=== PATIENT | female | born 1960 | race Caucasian/White ===

== ENCOUNTER → 2018-10-13 | Day surgery (SDC) | payer MEDICAID ==
[2018-10-08 14:59] LABS: Basophils # (auto) 0.1 uL; Basophils % (auto) 0.7 % (0.0-2.0); Eosinophils # (auto) 0.2 uL; Eosinophils % (auto) 2.4 % (0.0-7.0); Hematocrit 46.4 % (36.0-46.0); Hemoglobin 15.7 g/dL (12.2-16.2); Lymphocytes # (auto) 3.5 uL; Lymphocytes % (auto) 44.5 % (10.0-50.0); Mean Corpuscular Hemoglobin 31.1 pg (28.0-32.0); Mean Corpuscular Hgb Conc. 33.8 g/dL (32.0-36.0); Mean Corpuscular Volume 92.1 fL (80.0-100.0); Monocytes # (auto) 0.6 uL; Neutrophils # (auto) 3.5 uL; Neutrophils % (auto) 44.4 % (37.0-80.0); Nucleated Red Blood Cells % 0.1 %; Platelet Count (auto) 248 10^3/uL (140-450); Red Blood Cells 5.04 10^6/uL (4.0-5.20); Red Cell Distribution Width 14.1 % (11.8-14.3); White Blood Cell 7.9 10^3/uL (4.4-10.8)
[2018-10-08 15:18] LABS: Albumin 3.7 g/dL (3.4-5.0); BUN/Creatinine Ratio 14.8; Calcium 8.7 mg/dL (8.5-10.1); Potassium 3.7 mmol/L (3.5-5.1)
[2018-10-08 15:21] LABS: Bilirubin, Total 0.4 mg/dL (0.2-1.0); Total Protein 7.9 g/dL (6.4-8.2)
[2018-10-08 15:36] LABS: INR 0.96 (0.9-1.15); Partial Thromboplastin Time 27.8 sec (23.78-33.04); Prothrombin Time 10.3 sec (9.27-12.13)
[2018-10-08 15:44] LABS: Urine Bacteria FEW /hpf (None Seen); Urine Blood 1+ /uL (Negative); Urine Specific Gravity 1.013 (1.001-1.035); Urine WBC 3 /hpf (0 - 5)
[~2018-10-13] VITALS: Ht 170.2 cm; Wt 88.0 kg
[~2018-10-13] MED LIST: ALPR0.5T PO; CLINDAMYCIN 600MG IV 50 ML IV ONE; DIPH25CA6 PO; DOXAPRAM HCL 20 MG/ML 20ML VIAL INJ IV ONE; ENAL2.5T PO; FURO40TA PO; HYDROmorphone HCL 2 MG/ML VL IV PRN; KETOROLAC TROMETH 30 MG/ML 1ML VIAL IV ONE; LIDOCAINE 2% (LOCAL ANESTH.) PF 5ml SDV ONE; LIDOCAINE HCL 2% TOP JELLY 5ML TOP ONE; METO-159 PO; METOCLOPRAMIDE HCL 5MG/ml INJ 2ml VIAL IV ONE; MIDAZOLAM HCL 1MG/1ML-2 ML VIAL ONE; NEOMYCIN-BACITRACIN-POLYM 15GM TOP OINT TOP ONE; NIFE30TA76 PO; ONDANSETRON HCL 4 MG/2 ML VIAL ONE; PROPOFOL 10 MG/ML 20 ML IV ONE; ROPIVACAINE 0.5% (5MG/ML) 20ML AMPULE IJ ONE; SODIUM CHLORIDE LOCK 10 ML ONE; SUCCINYLCHOLINE CHLORIDE 20 MG/ML 10ML VIAL IV ONE; fentaNYL CITRATE 100 MCG/2 ML VL ONE
[2018-10-13 09:44] VITALS: BP 137/77
== END | disposition home or self-care (01) ==
LOC: SUR 06:20
PROVIDERS: ATTEND Podiatrist Foot & Ankle Surgery
DX: M20.11 Hallux valgus (acquired), right foot (principal); M21.611 Bunion of right foot; M19.90 Unspecified osteoarthritis, unspecified site; G47.30 Sleep apnea, unspecified; I10 Essential (primary) hypertension; J44.9 Chronic obstructive pulmonary disease, unspecified; E66.01 Morbid (severe) obesity due to excess calories; Z88.0 Allergy status to penicillin; Z88.8 Allergy status to other drugs, medicaments and biological substances; Z68.30 Body mass index [BMI] 30.0-30.9, adult
CPT/HCPCS: 28296; 28308; 36415; 73630; 80053; 81001; 85025; 85610; 85730; C1713; C1769; J0330; J1170; J2001; J2250; J2405; J2704; J2795; J3010; J3490; L3260

== ENCOUNTER 2019-02-09 08:46 | Day surgery (SDC) | payer MEDICAID ==
[2019-02-04 13:03] LABS: Basophils # (auto) 0.1 uL; Basophils % (auto) 0.9 % (0.0-2.0); Eosinophils # (auto) 0.1 uL; Eosinophils % (auto) 2.2 % (0.0-7.0); Hemoglobin 14.7 g/dL (12.2-16.2); Lymphocytes # (auto) 2.7 uL; Lymphocytes % (auto) 42.6 % (10.0-50.0); Mean Corpuscular Hemoglobin 30.7 pg (28.0-32.0); Mean Corpuscular Hgb Conc. 33.4 g/dL (32.0-36.0); Monocytes # (auto) 0.5 uL; Monocytes % (auto) 7.5 % (0.0-12.0); Neutrophils # (auto) 2.9 uL; Neutrophils % (auto) 46.8 % (37.0-80.0); Nucleated Red Blood Cells % 0.1 %; Platelet Count (auto) 221 10^3/uL (140-450); Red Blood Cells 4.78 10^6/uL (4.0-5.20); Red Cell Distribution Width 13.7 % (11.8-14.3); White Blood Cell 6.3 10^3/uL (4.4-10.8)
[2019-02-04 13:04] LABS: Urine Bacteria NONE SEEN /hpf (None Seen); Urine Blood 1+ /uL (Negative); Urine Specific Gravity 1.011 (1.001-1.035); Urine WBC 1 /hpf (0 - 5)
[2019-02-04 13:07] LABS: INR 0.98 (0.9-1.15); Partial Thromboplastin Time 27.1 sec (23.64-32.05)
[2019-02-04 15:36] LABS: Albumin 3.5 g/dL (3.4-5.0); Calcium 8.5 mg/dL (8.5-10.1); Potassium 3.5 mmol/L (3.5-5.1)
[2019-02-04 15:39] LABS: Bilirubin, Total 0.4 mg/dL (0.2-1.0); Total Protein 7.5 g/dL (6.4-8.2)
[~2019-02-09 08:46] MED LIST changes: -CLINDAMYCIN 600MG IV 50 ML IV ONE; -DOXAPRAM HCL 20 MG/ML 20ML VIAL INJ IV ONE; +FURO1TAB31 PO; -FURO40TA PO; -HYDROmorphone HCL 2 MG/ML VL IV PRN; -KETOROLAC TROMETH 30 MG/ML 1ML VIAL IV ONE; -LIDOCAINE 2% (LOCAL ANESTH.) PF 5ml SDV ONE; -LIDOCAINE HCL 2% TOP JELLY 5ML TOP ONE; -METOCLOPRAMIDE HCL 5MG/ml INJ 2ml VIAL IV ONE; -MIDAZOLAM HCL 1MG/1ML-2 ML VIAL ONE; -NEOMYCIN-BACITRACIN-POLYM 15GM TOP OINT TOP ONE; -ONDANSETRON HCL 4 MG/2 ML VIAL ONE; -PROPOFOL 10 MG/ML 20 ML IV ONE; -ROPIVACAINE 0.5% (5MG/ML) 20ML AMPULE IJ ONE; -SODIUM CHLORIDE LOCK 10 ML ONE; -SUCCINYLCHOLINE CHLORIDE 20 MG/ML 10ML VIAL IV ONE; -fentaNYL CITRATE 100 MCG/2 ML VL ONE
[2019-02-09] MEDS ORDERED: CLINDAMYCIN 600MG IV 50 ML IV ONE (09:11)
[2019-02-09] MEDS ORDERED: ROPIVACAINE 0.5% (5MG/ML) 20ML AMPULE IJ ONE (09:59)
[2019-02-09] MEDS ORDERED: NEOMYCIN-BACITRACIN-POLYM 15GM TOP OINT TOP ONE (09:59)
[2019-02-09] MEDS ORDERED: GLYCOPYRROLATE 0.2 MG/ML 1ML VIAL ONE (10:18)
[2019-02-09] MEDS ORDERED: diphenhdrAMINE HCL 50 MG/1 ML VL ONE (10:18)
[2019-02-09] MEDS ORDERED: MIDAZOLAM HCL 1MG/1ML-2 ML VIAL ONE (10:18)
[2019-02-09] MEDS ORDERED: METOCLOPRAMIDE HCL 5MG/ml INJ 2ml VIAL ONE (10:18)
[2019-02-09] MEDS ORDERED: PROPOFOL 10 MG/ML 20 ML IV ONE ×2 (10:21→11:08)
[2019-02-09] MEDS ORDERED: LIDOCAINE 2% (LOCAL ANESTH.) PF 5ml SDV ONE (10:21)
[2019-02-09] MEDS ORDERED: fentaNYL CITRATE 100 MCG/2 ML VL ONE (10:24)
[2019-02-09] MEDS ORDERED: HYDROmorphone HCL 2 MG/ML VL IV PRN (10:30)
[2019-02-09] MEDS ORDERED: NALOXONE HCL 0.4 MG/ML VIAL IV PRN (10:30)
[2019-02-09] MEDS ORDERED: ONDANSETRON HCL 4 MG/2 ML VIAL IV PRN (10:30)
[2019-02-09 12:07] VITALS: BP 138/71
== END 2019-02-09 12:15 | disposition home or self-care (01) ==
LOC: SUR 08:46
PROVIDERS: ATTEND Podiatrist Foot & Ankle Surgery
DX: M20.12 Hallux valgus (acquired), left foot (principal); M21.612 Bunion of left foot; M21.622 Bunionette of left foot; J44.9 Chronic obstructive pulmonary disease, unspecified; G47.33 Obstructive sleep apnea (adult) (pediatric); I10 Essential (primary) hypertension; E07.9 Disorder of thyroid, unspecified; M19.90 Unspecified osteoarthritis, unspecified site; Z88.8 Allergy status to other drugs, medicaments and biological substances; Z98.890 Other specified postprocedural states; Z88.0 Allergy status to penicillin; Z79.899 Other long term (current) drug therapy
CPT/HCPCS: 28110; 28296; 36415; 73620; 80053; 81001; 85025; 85610; 85730; C1713; C1769; J1200; J2001; J2250; J2704; J2765; J2795; J3010; J3490

== ENCOUNTER → 2020-01-20 | Day surgery (SDC) | payer MEDICAID ==
[2020-01-16 14:49] LABS: Basophils # (auto) 0.1 10 ^3/uL (0-0.2); Basophils % (auto) 0.8 % (0.0-2.0); Eosinophils # (auto) 0.2 10 ^3/uL (0-0.8); Eosinophils % (auto) 2.5 % (0.0-7.0); Hematocrit 42.7 % (36.0-46.0); Hemoglobin 14.2 g/dL (12.2-16.2); Lymphocytes # (auto) 2.8 10 ^3/uL (0.4-5.4); Lymphocytes % (auto) 35.2 % (10.0-50.0); Mean Corpuscular Hemoglobin 30.6 pg (28.0-32.0); Mean Corpuscular Hgb Conc. 33.2 g/dL (32.0-36.0); Mean Corpuscular Volume 92.3 fL (80.0-100.0); Monocytes # (auto) 0.6 10 ^3/uL (0-1.3); Monocytes % (auto) 7.8 % (0.0-12.0); Neutrophils # (auto) 4.3 10 ^3/uL (1.6-8.6); Neutrophils % (auto) 53.7 % (37.0-80.0); Platelet Count (auto) 232 10^3/uL (140-450); Red Blood Cells 4.63 10^6/uL (4.0-5.20); Red Cell Distribution Width 14.3 % (11.8-14.3); White Blood Cell 7.9 10^3/uL (4.4-10.8)
[2020-01-16 15:01] LABS: Partial Thromboplastin Time 27.1 sec (23.0-31.2)
[2020-01-16 15:07] LABS: Albumin 3.5 g/dL (3.4-5.0); Calcium 8.7 mg/dL (8.5-10.1); Potassium 3.7 mmol/L (3.5-5.1)
[2020-01-16 15:10] LABS: BUN/Creatinine Ratio 12.9; Bilirubin, Total 0.4 mg/dL (0.2-1.0); Total Protein 7.3 g/dL (6.4-8.2)
[2020-01-16 15:17] LABS: Urine Bacteria FEW /hpf (None Seen); Urine Blood 2+ /uL (Negative); Urine Mucus FEW (None Seen); Urine Specific Gravity 1.024 (1.001-1.035); Urine WBC 1 /hpf (0 - 5)
[~2020-01-20] VITALS: Ht 170.2 cm; Wt 98.4 kg
[~2020-01-20] MED LIST changes: +BUPIVACAINE 0.25% INJ 50ML VIAL ONE; +CLINDAMYCIN 600MG IV 50 ML IV ONE; -ENAL2.5T PO; +ENAL2.5T7 PO; +GLYCOPYRROLATE 0.2 MG/ML 1ML VIAL ONE; +HYDROmorphone HCL 2 MG/ML VL IV PRN; +KETAMINE HCL 10 ML ONE; +LIDOCAINE 1% (LOCAL ANESTH.) PF 5ml SDV ONE; +LIDOCAINE HCL 2% TOP JELLY 5ML TOP ONE; +METOCLOPRAMIDE HCL 5MG/ml INJ 2ml VIAL ONE; +MIDAZOLAM HCL 1MG/1ML-2 ML VIAL ONE; +NALOXONE HCL 0.4 MG/ML VIAL IV PRN; +NIFE1TAB31 PO; -NIFE30TA76 PO; +ONDANSETRON HCL 4 MG/2 ML VIAL IV PRN; +PROPOFOL 10 MG/ML 20 ML IV ONE; +SUCCINYLCHOLINE CHLORIDE 20 MG/ML 10ML VIAL IV ONE; +ceFAZolin 1GM/50ML 50 ML IV ONE; +diphenhdrAMINE HCL 50 MG/1 ML VL ONE; +hydrALAZINE HCL 20 MG/ML VL IV PRN
[2020-01-20 11:15] VITALS: BP 146/85
== END | disposition home or self-care (01) ==
LOC: SUR 06:41
PROVIDERS: ATTEND Podiatrist Foot & Ankle Surgery
DX: Z47.2 Encounter for removal of internal fixation device (principal); J44.9 Chronic obstructive pulmonary disease, unspecified; G47.33 Obstructive sleep apnea (adult) (pediatric); E66.01 Morbid (severe) obesity due to excess calories; I10 Essential (primary) hypertension; D64.9 Anemia, unspecified; I44.7 Left bundle-branch block, unspecified; G89.29 Other chronic pain; Z88.0 Allergy status to penicillin; Z88.1 Allergy status to other antibiotic agents; Z88.8 Allergy status to other drugs, medicaments and biological substances; Z79.899 Other long term (current) drug therapy; Z98.890 Other specified postprocedural states; Z68.35 Body mass index [BMI] 35.0-35.9, adult; Z11.59 Encounter for screening for other viral diseases
CPT/HCPCS: 20680; 36415; 73620; 80053; 81001; 85025; 85610; 85730; J0330; J0690; J1200; J2250; J2704; J2765; J3490; U0003

== ENCOUNTER → 2021-08-14 | Day surgery (SDC) | payer MEDICAID ==
[2021-08-09 11:19] LABS: Basophils # (auto) 0.1 10 ^3/uL (0-0.2); Eosinophils # (auto) 0.1 10 ^3/uL (0-0.8); Eosinophils % (auto) 1.7 % (0.0-7.0); Hematocrit 44.8 % (36.0-46.0); Hemoglobin 15.2 g/dL (12.2-16.2); Lymphocytes # (auto) 2.4 10 ^3/uL (0.4-5.4); Lymphocytes % (auto) 37.7 % (10.0-50.0); Mean Corpuscular Hemoglobin 30.8 pg (28.0-32.0); Mean Corpuscular Volume 90.4 fL (80.0-100.0); Monocytes # (auto) 0.5 10 ^3/uL (0-1.3); Monocytes % (auto) 7.3 % (0.0-12.0); Neutrophils # (auto) 3.3 10 ^3/uL (1.6-8.6); Neutrophils % (auto) 52.3 % (37.0-80.0); Nucleated Red Blood Cells % 0.2 %; Red Blood Cells 4.95 10^6/uL (4.0-5.20); White Blood Cell 6.3 10^3/uL (4.4-10.8)
[2021-08-09 11:43] LABS: INR 1.08 (0.9-1.15); Partial Thromboplastin Time 28.9 sec (23.6-33.0)
[2021-08-09 12:20] LABS: Albumin 3.4 g/dL (3.4-5.0); Calcium 8.9 mg/dL (8.5-10.1); Potassium 3.8 mmol/L (3.5-5.1)
[2021-08-09 12:23] LABS: BUN/Creatinine Ratio 12.5
[2021-08-09 12:27] LABS: Bilirubin, Total 0.6 mg/dL (0.2-1.0); Total Protein 7.3 g/dL (6.4-8.2)
[2021-08-09 14:01] LABS: Urine Bacteria FEW /hpf (None Seen); Urine Blood 1+ /uL (Negative); Urine Specific Gravity 1.011 (1.001-1.035); Urine WBC 3 /hpf (0 - 5)
[~2021-08-14] VITALS: Ht 170.2 cm; Wt 104.3 kg
[~2021-08-14] MED LIST changes: -ALPR0.5T PO; -BUPIVACAINE 0.25% INJ 50ML VIAL ONE; +BUPIVACAINE HCL 50 ML ONE; +BUPR1TAB11 PO; -DIPH25CA6 PO; -GLYCOPYRROLATE 0.2 MG/ML 1ML VIAL ONE; -KETAMINE HCL 10 ML ONE; -LIDOCAINE 1% (LOCAL ANESTH.) PF 5ml SDV ONE; +LIDOCAINE 1% HCL (LOCAL ANESTH.) INJ 20ML MDV ONE; -LIDOCAINE HCL 2% TOP JELLY 5ML TOP ONE; -METOCLOPRAMIDE HCL 5MG/ml INJ 2ml VIAL ONE; -MIDAZOLAM HCL 1MG/1ML-2 ML VIAL ONE; +MIDAZOLAM HCL 2MG/2ML 2ml VIAL (1mg/ml) ONE; -NALOXONE HCL 0.4 MG/ML VIAL IV PRN; +ONDANSETRON HCL 4 MG/2 ML VIAL ONE; -SUCCINYLCHOLINE CHLORIDE 20 MG/ML 10ML VIAL IV ONE; +UMEC1INH IN; -ceFAZolin 1GM/50ML 50 ML IV ONE; -diphenhdrAMINE HCL 50 MG/1 ML VL ONE; +fentaNYL CITRATE 100 MCG/2 ML VL ONE; -hydrALAZINE HCL 20 MG/ML VL IV PRN
[2021-08-14 11:50] VITALS: BP 134/71
== END | disposition home or self-care (01) ==
LOC: SUR 08:26
PROVIDERS: ATTEND Podiatrist
DX: R22.42 Localized swelling, mass and lump, left lower limb (principal); L72.0 Epidermal cyst; D49.2 Neoplasm of unspecified behavior of bone, soft tissue, and skin; F17.200 Nicotine dependence, unspecified, uncomplicated; I10 Essential (primary) hypertension; M19.90 Unspecified osteoarthritis, unspecified site; J44.9 Chronic obstructive pulmonary disease, unspecified; G47.30 Sleep apnea, unspecified; Z98.890 Other specified postprocedural states; Z79.899 Other long term (current) drug therapy; Z88.0 Allergy status to penicillin; Z88.1 Allergy status to other antibiotic agents; Z88.5 Allergy status to narcotic agent; Z20.822 Contact with and (suspected) exposure to COVID-19
CPT/HCPCS: 11423; 36415; 80053; 81001; 85025; 85610; 85730; 88305; J2001; J2250; J2405; J2704; J3010; J3490; U0003

== ENCOUNTER 2025-01-16 06:06 | Inpatient (IN) | payer OTHER, MEDICAID ==
[2025-01-16] VITALS (14 sets, daily range): BP systolic 112–161; BP diastolic 70–116; PULSE 58–96; RESP 11–18; TEMP 97.3–97.7; O2SAT 92–100
[~2025-01-16] VITALS: Ht 170.2 cm; Wt 110.6 kg
[~2025-01-16 06:06] MED LIST changes: +ACET1CAP14 PO; +ASHW125C PO; -BUPIVACAINE HCL 50 ML ONE; -BUPR1TAB11 PO; +CHOL20004 PO; -CLINDAMYCIN 600MG IV 50 ML IV ONE; +CYAN-17 PO; +DIPH25CA66 PO; -ENAL2.5T7 PO; -HYDROmorphone HCL 2 MG/ML VL IV PRN; -LIDOCAINE 1% HCL (LOCAL ANESTH.) INJ 20ML MDV ONE; -MIDAZOLAM HCL 2MG/2ML 2ml VIAL (1mg/ml) ONE; -ONDANSETRON HCL 4 MG/2 ML VIAL IV PRN; -ONDANSETRON HCL 4 MG/2 ML VIAL ONE; -PROPOFOL 10 MG/ML 20 ML IV ONE; -UMEC1INH IN; -fentaNYL CITRATE 100 MCG/2 ML VL ONE
[2025-01-16] MEDS: VANCOMYCIN HCL 1000 MG VL ONE ×2 (06:39→07:19)
[2025-01-16] MEDS: ACETAMINOPHEN IV 100 ML IV ONE (06:40)
[2025-01-16] MEDS ORDERED: KETOROLAC TROMETH 30 MG/ML 1ML VIAL ONE (07:08)
[2025-01-16] MEDS: PREGABALIN CAPSULE 75 MG CAP PO ONE (07:10)
[2025-01-16] MEDS: ACETAMINOPHEN IV 1000 MG/100ML (10MG/ML) IV ONE (07:10)
[2025-01-16] MEDS ORDERED: MIDAZOLAM HCL 2MG/2ML 2ml VIAL (1mg/ml) ONE (07:18)
[2025-01-16] MEDS ORDERED: fentaNYL CITRATE 100 MCG/2 ML VL ONE (07:18)
[2025-01-16] MEDS ORDERED: PHENYLEPHRINE HCL 10 MG/ML VL ONE (07:21)
[2025-01-16] MEDS: CEFEPIME 1GM/50ML 50 ML IV ONE (07:22)
[2025-01-16] MEDS: TRANEXAMIC ACID 20 ML ONE (07:22)
[2025-01-16] MEDS: VANCOMYCIN 1GM/200ML PM 200 ML IV ONE (07:22)
[2025-01-16] MEDS ORDERED: ONDANSETRON HCL 4 MG/2 ML VIAL ONE (07:24)
[2025-01-16] MEDS ORDERED: LIDOCAINE 2% (LOCAL ANESTH.) PF 5ml SDV ONE (07:24)
[2025-01-16] MEDS ORDERED: METOCLOPRAMIDE HCL 5MG/ml INJ 2ml VIAL ONE (07:24)
--- NOTE | 2025-01-16 07:25 | DVHOP2 ---
Operative Report - 2 Report Details Date: 01/16/25 Preop Diagnosis: Right knee osteoarthritis Postop Diagnosis: Right knee osteoarthritis Surgeon: Héctor Reed MD Process Manager: Robbie Pinto Anesthesiologist: Brooks HARLEY Anesthesia: Regional Implant: [employer] Size porous CR knee see implant log Consent: The patient was informed of the risks and benefits of the procedure. These include but are not limited to complications of anesthesia, postoperative infection, incomplete relief of symptoms, recurrence of symptoms, damage to blood vessels, nerves and tendons, deep venous thrombosis, pulmonary embolism and possible need for repeat surgery in the future. Estimated Blood Loss: 50 cc Name of Procedure Performed Right total knee arthroplasty with computer navigation Procedure Details Procedure Details: FINDINGS: Extensive degenerative disease with grade IV changes INDICATION: This patient has failed non-operative treatments for knee arthritis and is now indicated for a total knee replacement. Preoperatively in the waiting area as well as in the office, I had a long discussion with the patient regarding the plan, the expected outcome, the risks, benefits, and alternatives of surgery. The risks include, but are not limited to, infection (which may require future surgery and removal of implants) , bleeding (which may require a transfusion), damage to nerves, arteries, veins, tendons, muscles and other adjacent structures. Also discussed the possibilities of intraoperative fractures, implant loosening, heterotopic bone formation, and revision for variety of reasons, and medical complications etc. This was discussed at length and consent has been obtained. DESCRIPTION OF PROCEDURE: In the preoperative holding area, the consent was reviewed and the appropriate extremity was verified by the patient and marked with my initials. The patient was then transferred to the operating theatre. Appropriate anesthesia was induced. All bony prominences were well padded. A time out was performed verifying the side and site of surgery according to standard protocol. Preoperative antibiotics were given 10 minutes prior to tourniquet inflation. Tranexamic acid was given. A well padded thigh tourniquet was applied. The extremity was then prepped and draped in the usual sterile fashion. The extremity was exsanguinated and the tourniquet was inflated. We then made a mid-line incision, which we continued to the underlying capsular tissue. We performed a medial parapatellar arthrotomy. We periosteally exposed the proximal tibia, excised the anterior fat pad and synovium from the distal aspect of the femur. We then subluxed the patella and brought the knee up into flexion. The lateral meniscus, ACL, and PCL were released. We used the appropriate guide with attached computer navigation to secure the distal femoral cutting block to the femur with pins and completed the distal femoral cut in 0 degrees to the mechanical axis with an oscillating saw. We removed the distal femoral cutting block and turned our attention to the tibia. We used the extramedullary tibial alignment guide with computer navigation to secure the proximal tibial cutting block to the tibia with pins, setting it for a 2 mm cut from the more involved side, and completed the proximal tibial cut. We then used the spacer block and alignment sidney to check the varus-valgus angle of our cuts and the extension gap. The knee was then balanced in extension to varus/valgus stress. We marked our femoral anatomy, including Paul's line and the epicondylar axis. Using that as a rotational guide, we used the sizing guide to size our femur properly, using a stylus to ensure there would be no notching. We then used the AP cutting guide to make our anterior and posterior cuts and chamfer cuts with an oscillating saw. We again checked the flexion and extension gaps and coronal balancing. Next, we sized our tibia and secured a baseplate with appropriate rotation with pins. We placed a trial femur in position and complet ed preparation of the notch with reamers and box osteotome and placed a trial notch in position. We used trials to choose our liner size and then placed the liner in place and reduced the knee. We used an oscillating saw to resurface the patella, and used a guide to choose the button size and completed patella preparation with the drill. We then placed a trial button in place. At this point, we checked our seven parameters: 1) Limb alignment 2) Extension 3) Flexion against gravity 4) Flexion stability 5) Varus-valgus balancing 6) Component rotation 7) Patella tracking We were satisfied with these and removed all trials with the exception of the baseplate. We completed preparation of the tibia with the appropriate reamer and keel impactor and then removed the baseplate. We placed a bone plug in the distal femur and then irrigated and dried all bony surfaces and injected our pain cocktail. impacted our tibial, femoral and patellar components into position. We impacted our liner and reduced the knee and held it with axial loading. We released the tourniquet and achieved hemostasis where necessary. A dilute betadine solution (17.5mL in 500mL saline) was used to wash the joint and left to sit for 3 minutes. This was then irrigated out with copious amounts of pulse lavage. We sprinkled 1g vancomycin powder below the fascia and 1g above the fascia. We copiously irrigated the knee. We re-checked our seven parameters. We closed our capsular incision with a PDS style suture. We irrigated further. We closed the subcutaneous tissue with Vicryl suture and re-approximated the skin with guille. We verified all lower extremity compartments were soft and compressible and that we had intact distal pulses. We wrapped the extremity in sterile Webril and tai bandage. The patient was transferred to the recovery room in stable condition. Condition Good Disposition Still a Patient HÉCTOR REED MD Jan 16, 2025 07:25
[2025-01-16] MEDS ORDERED: MORPHINE SULFATE INJ 2 MG/ml SYRG IV PRN (07:30)
[2025-01-16] MEDS ORDERED: NITROGLYCERIN 0.4 MG SL TAB SL PRN (07:30)
[2025-01-16] MEDS ORDERED: HYDROmorphone HCL 2 MG/ML VL/or syr IV PRN ×2 (07:30→09:30)
[2025-01-16] MEDS ORDERED: ONDANSETRON HCL 4 MG/2 ML VIAL IV PRN (07:30)
[2025-01-16] MEDS ORDERED: PROPOFOL 10 MG/ML 20 ML IV ONE (07:42)
[2025-01-16] MEDS: BUPIVACAINE 0.25% INJ 50ML VIAL ONE (07:50)
[2025-01-16] MEDS: MORPHINE SULF PF 5 MG/10 ML VIAL ONE (07:50)
[2025-01-16] MEDS ORDERED: LIDOCAINE W/ EPINEPHRINE 1% 20ML VIAL ONE (08:10)
[2025-01-16] MEDS ORDERED: diphenhdrAMINE HCL 50 MG/1 ML VL IV PRN (09:30)
[2025-01-16] MEDS ORDERED: NALOXONE HCL 0.4 MG/ML VIAL IV PRN (09:30)
[2025-01-16] MEDS: METOPROLOL TARTRATE 50 MG TAB PO SCH (09:59)
[2025-01-16] MEDS ORDERED: CEFEPIME 1GM/50ML 50 ML IV SCH (10:00)
[2025-01-16] MEDS: DOCUSATE SOD 100 MG CAP PO SCH (10:15)
[2025-01-16] MEDS: LACTATED RINGER'S 1,000 ML IV SCH (10:16)
[2025-01-16] MEDS: FUROSEMIDE 20 MG TAB PO SCH (11:08)
--- NOTE | 2025-01-16 11:42 | DVH ---
EXAM: XY R KNEE 3V XRAY CLINICAL INDICATION: S/P SURGERY TECHNIQUE: XY R KNEE 3V XRAY Comparison: None FINDINGS/IMPRESSION: There is no evidence of acute fracture or dislocation. Right total knee artrhoplasty. Surgical skin guille. There is no radiopaque foreign body.
[2025-01-16] MEDS: ONDANSETRON HCL 4 MG/2 ML VIAL IV PRN (12:41)
--- NOTE | 2025-01-16 13:02 | DVHHP2 ---
Review of Systems Allergies: Coded Allergies: NSAIDs (Verified Allergy, Unknown, 01/16/20) Penicillins (Verified Allergy, Unknown, 01/16/20) Tetracycline (Verified Allergy, Unknown, 01/16/20) Tramadol (Verified Allergy, Unknown, 01/16/20) Medications Current Medications Medications Dose Ordered Sig/Ron Route Start Time Stop Time Status Last Admin Dose Admin Diphenhydramine HCl 25 mg QPM PO 01/16/25 18:00 Nifedipine 30 mg DAILY PO 01/16/25 10:00 Furosemide 60 mg DAILY PO 01/16/25 10:00 01/16/25 11:08 60 MG Metoprolol Tartrate 100 mg DAILY PO 01/16/25 10:00 Cefazolin Sodium/ Dextrose 50 ml @ 50 mls/hr Q8HR IV 01/16/25 14:00 01/17/25 06:59 Lactated Ringer's 1,000 ml @ 100 mls/hr Q10H IV 01/16/25 07:30 01/16/25 10:16 100 MLS/HR Sodium Chloride 10 ml Q8HR IV 01/16/25 14:00 Oxycodone/ Acetaminophen 1 tab Q4HP PRN PO 01/16/25 07:30 Hydromorphone HCl 1 mg Q2HP PRN IV 01/16/25 07:30 Ondansetron HCl 4 mg Q6HP PRN IV 01/16/25 07:30 Cancel Docusate Sodium 100 mg Q12HR PO 01/16/25 10:00 01/16/25 10:15 100 MG Nitroglycerin 0.4 mg Q5MINP PRN SL 01/16/25 07:30 Morphine Sulfate 2 mg Q30M PRN IV 01/16/25 07:30 Diphenhydramine HCl 25 mg Q4HP PRN IV 01/16/25 09:30 Ondansetron HCl 4 mg Q4HP PRN IV 01/16/25 09:30 01/16/25 15:00 01/16/25 12:41 4 MG Aspirin 81 mg BID PO 01/17/25 10:00 Future Hold Cefepime HCl 50 ml @ 12.5 mls/hr DAILY IV 01/17/25 10:00 Future Hold Cyclobenzaprine HCl 5 mg TID PO 01/16/25 14:00 Exam Vital Signs Vital Signs Date Time Temp Pulse Resp B/P (MAP) Pulse Ox O2 Delivery O2 Flow Rate FiO2 01/16/25 12:05 51 13 125/68 (87) 97 01/16/25 10:20 Nasal Cannula 3.0 100 01/16/25 09:20 97.3 97.3 SEPSIS Sepsis Screen Physician Orders Diphenhdramine Capsule (Benadryl Capsule (01/16/25 18:00) Nifedipine Er (Procardia Xl (Time-Releas (01/16/25 10:00) Furosemide Tablet (Lasix Tablet) (01/16/25 10:00) Metoprolol Tartrate Tablet (Lopressor Ta (01/16/25 10:00) Cefazolin 2 Gm/D2w05hg (Ancef) (01/16/25 14:00) Patient Condition Stable (01/16/25 07:18) R Knee 3v Xray (01/16/25 07:18) Hemoglobin & Hematocrit (01/17/25 07:00) Hemoglobin & Hematocrit (01/18/25 07:00) Hemoglobin & Hematocrit (01/19/25 07:00) Discontinue Guerra Catheter (01/17/25 06:00) Vital Signs .PER UNIT PROTOCOL (01/16/25 07:18) Weight-Bearing Restrictions (01/16/25 07:18) Lactated Ringer's (01/16/25 07:30) Sodium Chloride Lock (Saline Lock Ns) (01/16/25 14:00) Oxycodone W/ Acet 5/325mg Tab (Percocet (01/16/25 07:30) Hydromorphone Injection (Dilaudid Inject (01/16/25 07:30) Docusate Sodium Capsule (Colace Capsule) (01/16/25 10:00) 2 Gm Sodium Diet (01/16/25 Breakfast) CPM (01/16/25 07:18) Pt Request For Service (01/16/25 07:18) Comprehensive Metabolic Panel (01/17/25 04:00) Call/Page Hospitalist/Atten Fo (01/16/25 07:18) Cpm Machine To Operative Leg (01/16/25 07:18) Incentive Spirometry (01/16/25 07:18) Nitroglycerin Sublingual (Ntrostat Subli (01/16/25 07:30) Morphine Sulfate Injection (01/16/25 07:30) Stat Ekg For Chest Pain (01/16/25 07:18) Notify Md Of Changes From Base (01/16/25 07:18) Shipmaster For 24 Hours (01/16/25 07:18) Emergency Dysrhythmia Protocol (01/16/25 07:18) Rhythm Strips Once Every Shift (01/16/25 07:18) Oxygen By Nasal Cannula (01/16/25 07:18) Up In Chair Qid (01/16/25 07:18) Apply Ice To Affected Area (01/16/25 07:18) * Hospitalist Consult (01/16/25 ) Maintain Hob >30 QSHIFT (01/16/25 09:24) Diphenhdramine Injection (Benadryl Injec (01/16/25 09:30) Ondansetron Hcl (Zofran) (01/16/25 09:30) Received Epi/Spinal Morphine (01/16/25 09:24) Admit (01/16/25 09:41) Communication Order (01/16/25 09:41) Aspirin Tablet (01/17/25 10:00) Cefepime 1gm/ 50ml (Maxipime 1gm/50ml) (01/17/25 10:00) Bipap/Cpap For Sleep Apnea (01/16/25 10:44) Cyclobenzaprine Tablet (Flexeril Tablet) (01/16/25 14:00) Vital Signs Date Time Temp Pulse Resp B/P (MAP) Pulse Ox O2 Delivery O2 Flow Rate FiO2 01/16/25 12:05 51 13 125/68 (87) 97 01/16/25 11:35 48 12 144/66 (92) 96 01/16/25 11:08 138/80 01/16/25 11:05 55 17 145/82 (103) 94 01/16/25 10:35 60 12 130/68 (88) 93 01/16/25 10:20 Nasal Cannula 3.0 100 01/16/25 10:05 57 13 125/71 (89) 97 01/16/25 09:50 57 11 125/65 (85) 92 01/16/25 09:35 62 17 120/66 (84) 94 01/16/25 09:30 65 15 116/59 (78) 94 01/16/25 09:25 65 15 131/64 (86) 96 01/16/25 09:20 Nasal Cannula 5.0 96 01/16/25 09:20 63 12 96 Nasal Cannula 5.0 01/16/25 09:20 97.3 63 12 130/56 (80) 96 97.3 01/16/25 06:25 97.0 59 16 153/86 (108) 95 97.0 Medications Medications Dose Ordered Sig/Ron Route Start Time Stop Time Status Last Admin Dose Admin Acetaminophen 1,000 mg ONCE ONCE IV 01/16/25 06:45 01/16/25 06:51 DC 01/16/25 07:10 1,000 MG Bupivacaine HCl 50 ml STK-MED ONCE .ROUTE 01/16/25 06:55 01/16/25 06:52 DC 01/16/25 07:50 40 ML Cefepime HCl 50 ml @ ud STK-MED ONCE IV 01/16/25 07:06 01/16/25 07:03 DC 01/16/25 07:22 Docusate Sodium 100 mg Q12HR PO 01/16/25 10:00 01/16/25 10:15 100 MG Furosemide 60 mg DAILY PO 01/16/25 10:00 01/16/25 11:08 60 MG Lactated Ringer's 1,000 ml @ 100 mls/hr Q10H IV 01/16/25 07:30 01/16/25 10:16 100 MLS/HR Morphine Sulfate 5 mg STK-MED ONCE .ROUTE 01/16/25 07:18 01/16/25 07:15 DC 01/16/25 07:50 5 MG Ondansetron HCl 4 mg Q4HP PRN IV 01/16/25 09:30 01/16/25 15:00 01/16/25 12:41 4 MG Pregabalin 300 mg ONCE ONCE PO 01/16/25 06:45 01/16/25 06:51 DC 01/16/25 07:10 300 MG Tranexamic Acid 20 ml @ ud STK-MED ONCE .ROUTE 01/16/25 06:55 01/16/25 06:52 DC 01/16/25 07:22 Vancomycin HCl 200 ml @ 200 mls/hr ONCE ONCE IV 01/16/25 06:45 01/16/25 07:44 DC 01/16/25 07:22 Assessment/Plan Assessment/Plan see dictated note Plan discussed with: Patient Date of Service: Jan 16, 2025 Billing Provider: TERESO GRAF MD Common Visit Codes: [id number] INP/OBS CARE (HIGH) Secondary Visit Codes: [id number] CHNG SMOKING >10MIN, [id number] CARE PLAN 30 MINUTES TERESO GRAF MD Jan 16, 2025 13:02
[2025-01-16] MEDS ORDERED: ALBUTEROL SULF 2.5 MG/0.5ML(0.5%) NEB SOLN NEB PRN (13:15)
--- NOTE | 2025-01-16 13:45 | DVHHP ---
ADMIT DATE: 01/16/2025 HISTORY OF PRESENT ILLNESS: The patient is a 64-year-old lady who is admitted to Dr. Grewal and underwent surgery on the right knee for DJD of the knee. The patient at this time denies any significant pain. No shortness of breath. No nausea or vomiting. No chest pain. REVIEW OF SYSTEMS: Review of rest of the systems is otherwise currently negative. PAST MEDICAL HISTORY: Significant for COPD, hypertension, and questionable congestive heart failure. MEDICATIONS: She takes Lasix, metoprolol, nifedipine. SOCIAL HISTORY: The patient lives at home with her . She smokes about 4-5 cigarettes a day. Denies alcohol intake. ALLERGIES: PENICILLIN, TETRACYCLINE, AND TRAMADOL. FAMILY HISTORY: Negative. PHYSICAL EXAMINATION: GENERAL: The patient is awake and alert. VITAL SIGNS: Temperature of 97.3, pulse 51 per minute, blood pressure 125/68. SHEENT: Unremarkable. NECK: There is no JVD. No pedal edema. LUNGS: Diminished bilaterally. CARDIOVASCULAR: S1 and S2 is regular. There is bradycardia. ABDOMEN: Soft. There is no organomegaly. NEUROLOGIC: Nonfocal. MUSCULOSKELETAL: The right knee is currently in a dressing. ASSESSMENT AND PLAN: * Hypertension for which the patient will be placed on as needed hydralazine. * Obesity. * COPD for which she will be placed on p.r.n. albuterol. * Tobacco abuse for which she has been advised to quit. A nicotine patch has been placed. Time spent was 11 minutes. * Questionable chronic systolic/diastolic heart failure. She will continue on Lasix. * Status post right knee surgery for DJD of the knee for which she will be placed on pain medications and physical therapy. ADVANCED CARE PLANNING: The patient is a FULL CODE-Time spent was 18 minutes. MD ANNA Person/NATE/AMI TID: [id number] RECEIPT: [id number] MTDSimon
[2025-01-16] MEDS: SODIUM CHLOR 0.9% PF (SALINE LOCK) 10ML VIAL/SYR IV SCH (14:00)
[2025-01-16] MEDS: CYCLOBENZAPRINE HCL 10 MG TAB PO SCH (14:31)
[2025-01-16] MEDS: NICOTINE 21MG/24 HR TOPICAL PATCH TD ONE (14:32)
[2025-01-16] MEDS: ceFAZolin 2 GM/D5W50ml 50 ML IV SCH (14:43)
[2025-01-17] VITALS (19 sets, daily range): BP systolic 122–142; BP diastolic 58–81; PULSE 58–89; RESP 15–19; TEMP 97.3–99.3; O2SAT 91–99
[2025-01-17 06:03] LABS: Hematocrit 41.5 % (36.0-46.0); Hemoglobin 14.3 g/dL (12.2-16.2)
[2025-01-17] MEDS: OXYCODONE W/ ACETAMINOPHEN 5/325MG TABLET PO PRN (06:08)
[2025-01-17 06:15] LABS: Alanine Aminotransferase 16 U/L (7-40); Albumin 4.0 g/dL (3.2-4.8); Alkaline Phosphatase 58 U/L (46-116); Anion Gap 7 (5-15); BUN/Creatinine Ratio 14.6 (10.0-20.0); Blood Urea Nitrogen 13 mg/dL (9-23); Calcium 8.9 mg/dL (8.7-10.4); Carbon Dioxide 29 mmol/L (20-31); Chloride 105 mmol/L (98-107); Potassium 4.9 mmol/L (3.5-5.1); Sodium 141 mmol/L (136-145); Total Protein 6.5 g/dL (5.7-8.2)
[2025-01-17 06:16] LABS: Bilirubin, Total 0.6 mg/dL (0.2-1.0); Glucose 121 mg/dL (74-106)
--- NOTE | 2025-01-17 07:43 | DVH ---
CHEST RADIOGRAPH Indication: copd Technique: Single frontal view of the chest was obtained COMPARISON: None FINDINGS: Lines and Tubes: None Lungs: Clear. Mild bibasilar atelectasis. Pleura: No effusion. No pneumothorax. Cardiomediastinal contours: Unremarkable Bones: Unremarkable IMPRESSION: 1. No acute disease.
--- NOTE | 2025-01-17 08:01 | DVHPN2 ---
Progress Note Date Seen: Jan 17, 2025 Medical Necessity Reason Pt with a Central, PICC or Fol: No Subjective Patient reports: No new complaints Objective vital signs Vital Sign Date Time Temp Pulse Resp B/P (MAP) Pulse Ox O2 Delivery O2 Flow Rate FiO2 01/17/25 07:12 97 Nasal Cannula* 1 24 01/17/25 06:28 97.3 63 18 135/75 (95) 97.3 Total Intake and Output 01/16/25 01/16/25 01/17/25 15:00 23:00 07:00 Intake Total 270 ml 690 ml 290 ml Output Total 0 ml 0 ml Balance 270 ml 690 ml 290 ml medications Current Medications Medications Dose Ordered Sig/Ron Route Start Time Stop Time Status Last Admin Dose Admin Diphenhydramine HCl 25 mg QPM PO 01/16/25 18:00 01/16/25 17:03 25 MG Nifedipine 30 mg DAILY PO 01/16/25 10:00 Furosemide 60 mg DAILY PO 01/16/25 10:00 01/16/25 11:08 60 MG Lactated Ringer's 1,000 ml @ 100 mls/hr Q10H IV 01/16/25 07:30 01/16/25 10:16 100 MLS/HR Sodium Chloride 10 ml Q8HR IV 01/16/25 14:00 01/17/25 06:00 10 ML Oxycodone/ Acetaminophen 1 tab Q4HP PRN PO 01/16/25 07:30 01/17/25 06:08 1 TAB Ondansetron HCl 4 mg Q6HP PRN IV 01/16/25 07:30 Cancel Docusate Sodium 100 mg Q12HR PO 01/16/25 10:00 01/16/25 10:15 100 MG Nitroglycerin 0.4 mg Q5MINP PRN SL 01/16/25 07:30 Morphine Sulfate 2 mg Q30M PRN IV 01/16/25 07:30 Diphenhydramine HCl 25 mg Q4HP PRN IV 01/16/25 09:30 Aspirin 81 mg BID PO 01/17/25 10:00 Future Hold Cefepime HCl 50 ml @ 12.5 mls/hr DAILY IV 01/17/25 10:00 Future Hold Cyclobenzaprine HCl 5 mg TID PO 01/16/25 14:00 01/17/25 06:00 5 MG Hydromorphone HCl 1 mg Q3HP PRN IV 01/16/25 13:15 Hydralazine HCl 10 mg Q6HP PRN IV 01/16/25 13:15 Nicotine 1 patch DAILY TD 01/17/25 10:00 Albuterol 2.5 mg Q6HPRN PRN NEB 01/16/25 13:15 Examination: GENERAL:Normal, MSK:Abnormal laboratory and microbiology Laboratory Tests 01/17/25 05:04 Test 01/17/25 05:04 Range/Units Serum Glucose 121 H 74-106 mg/dL Problem List/Assessment/Plan Problem List/Assessment/Plan 64 year old female who is s/p Right TKA POD 1 1. Pain control 2. DVT ppx 3. Physical therapy 4. CPM as ordered 5. WBAT RLE 6. d/c planning for possible home tomorrow Plan discussed with: Patient My Orders My Orders Orders - CORBY TATUM NP Procedure Category Date Status Time Bipap/Cpap For Sleep RT 01/16/25 Logged Apnea 10:44 Date of Service: Jan 17, 2025 Billing Provider: LIS REED MD Common Visit Codes: NOT BILLABLE CORBY TATUM NP Jan 17, 2025 08:01
[2025-01-17] MEDS ORDERED: CEFEPIME 1GM/50ML 50 ML IV SCH (10:00)
[2025-01-17] MEDS: NICOTINE 21MG/24 HR TOPICAL PATCH TD SCH (10:03)
--- NOTE | 2025-01-17 10:08 | DVHPN2 ---
Progress Note Date Seen: Jan 17, 2025 Medical Necessity Reason Pt with a Central, PICC or Fol: No Subjective Patient reports: No new complaints Review of Systems: HEENT:Normal, CVS:Normal, RESPIRATORY:Normal, GI:Normal, :Normal, MSK:Normal, NEURO:Normal Objective vital signs Vital Sign Date Time Temp Pulse Resp B/P (MAP) Pulse Ox O2 Delivery O2 Flow Rate FiO2 01/17/25 09:51 126/58 01/17/25 08:32 98.1 73 17 99 98.1 01/17/25 07:12 Nasal Cannula* 1 24 Total Intake and Output 01/16/25 01/16/25 01/17/25 15:00 23:00 07:00 Intake Total 270 ml 690 ml 290 ml Output Total 0 ml 0 ml Balance 270 ml 690 ml 290 ml medications Current Medications Medications Dose Ordered Sig/Ron Route Start Time Stop Time Status Last Admin Dose Admin Diphenhydramine HCl 25 mg QPM PO 01/16/25 18:00 01/16/25 17:03 25 MG Nifedipine 30 mg DAILY PO 01/16/25 10:00 01/17/25 09:50 30 MG Furosemide 60 mg DAILY PO 01/16/25 10:00 01/17/25 09:51 60 MG Lactated Ringer's 1,000 ml @ 100 mls/hr Q10H IV 01/16/25 07:30 01/16/25 10:16 100 MLS/HR Sodium Chloride 10 ml Q8HR IV 01/16/25 14:00 01/17/25 06:00 10 ML Oxycodone/ Acetaminophen 1 tab Q4HP PRN PO 01/16/25 07:30 01/17/25 06:08 1 TAB Ondansetron HCl 4 mg Q6HP PRN IV 01/16/25 07:30 Cancel Docusate Sodium 100 mg Q12HR PO 01/16/25 10:00 01/16/25 10:15 100 MG Nitroglycerin 0.4 mg Q5MINP PRN SL 01/16/25 07:30 Morphine Sulfate 2 mg Q30M PRN IV 01/16/25 07:30 Diphenhydramine HCl 25 mg Q4HP PRN IV 01/16/25 09:30 Aspirin 81 mg BID PO 01/17/25 10:00 Hold Cefepime HCl 50 ml @ 12.5 mls/hr DAILY IV 01/17/25 10:00 Hold Cyclobenzaprine HCl 5 mg TID PO 01/16/25 14:00 01/17/25 06:00 5 MG Hydromorphone HCl 1 mg Q3HP PRN IV 01/16/25 13:15 Hydralazine HCl 10 mg Q6HP PRN IV 01/16/25 13:15 Nicotine 1 patch DAILY TD 01/17/25 10:00 01/17/25 10:03 1 PATCH Albuterol 2.5 mg Q6HPRN PRN NEB 01/16/25 13:15 Examination: GENERAL:Normal, HEENT:Normal, NECK:Normal, LUNGS:Normal, LUNGS:Abnormal (on oxygen), CVS:Normal, ABDOMEN:Normal, MSK:Normal, SKIN:Normal, NEURO:Normal, :Normal laboratory and microbiology Laboratory Tests 01/17/25 05:04 Test 01/17/25 05:04 Range/Units Serum Glucose 121 H 74-106 mg/dL Problem List/Assessment/Plan Problem List/Assessment/Plan * Hypertension for which the patient will be placed on as needed hydralazine. * Obesity. * COPD for which she will be placed on albuterol/atrovent nebs * Tobacco abuse for which she has been advised to quit. A nicotine patch has been placed. Time spent was 11 minutes. * Questionable chronic systolic/diastolic heart failure. She will continue on Lasix. * Status post right knee surgery for DJD of the knee for which she will be placed on pain medications and physical therapy. ADVANCED CARE PLANNING: The patient is a FULL CODE-Time spent was 18 minutes. Plan discussed with: Patient My Orders My Orders Orders - TERESO GRAF MD Procedure Category Date Status Time Hydromorphone PHA 01/16/25 In Process Injection (Dilaudid 13:15 Hydralazine Injection PHA 01/16/25 In Process (Apresoline Inject 13:15 Nicotine 21mg/24hr PHA 01/17/25 In Process (Nicoderm 21mg/24hr) 10:00 Albuterol Medneb PHA 01/16/25 In Process (Ventolin Medneb) 13:15 Chest Portable XY 01/17/25 Resulted 06:00 Bipap/Cpap For Sleep RT 01/16/25 Logged Apnea 13:43 Furosemide Tablet PHA 01/18/25 Verified (Lasix Tablet) 10:00 Urinalysis LAB 01/17/25 Uncollected 10:04 Albuterol Medneb PHA 01/17/25 Verified (Ventolin Medneb) 12:00 Ipratropium Medneb PHA 01/17/25 Verified (Atrovent Medneb) 12:00 Complete Blood Count LAB 01/18/25 Verified 06:00 Basic Metabolic Panel LAB 01/18/25 Verified 06:00 Magnesium LAB 01/18/25 Verified 05:00 Date of Service: Jan 17, 2025 Billing Provider: TERESO GRAF MD Common Visit Codes: [id number] INP/OBS CARE(HIGH) Secondary Visit Codes: [id number] CARE PLAN 30 MINUTES TERESO GRAF MD Jan 17, 2025 10:08
[2025-01-17] MEDS: IPRATROPIUM BROM 0.5 MG/2.5ML INH SOL NEB SCH (11:53)
[2025-01-17] MEDS: ALBUTEROL SULF 2.5 MG/0.5ML(0.5%) NEB SOLN NEB SCH (11:53)
[2025-01-17 13:45] LABS: Urine Protein, UAD Negative (Negative)
[2025-01-17] MEDS: CEFEPIME 1GM/50ML 50 ML IV SCH (22:34)
[2025-01-18] VITALS (13 sets, daily range): BP systolic 127–156; BP diastolic 66–84; PULSE 83–111; RESP 16–20; TEMP 97.1–99.1; O2SAT 90–100
[2025-01-18] MEDS: hydrALAZINE HCL 20 MG/ML VL IV PRN (05:27)
[2025-01-18] MEDS: HYDROmorphone HCL 2 MG/ML VL/or syr IV PRN (06:59)
[2025-01-18 07:12] LABS: Hematocrit 40.8 % (36.0-46.0); Hemoglobin 14.2 g/dL (12.2-16.2); Mean Corpuscular Hemoglobin 31.7 pg (28.0-32.0); Mean Corpuscular Volume 91.3 fL (80.0-100.0); Nucleated Red Blood Cells % 0.0 %
[2025-01-18 07:21] LABS: Anion Gap 8 (5-15); Calcium 8.9 mg/dL (8.7-10.4); Carbon Dioxide 28 mmol/L (20-31); Chloride 106 mmol/L (98-107); Sodium 142 mmol/L (136-145)
[2025-01-18 07:26] LABS: Glucose 103 mg/dL (74-106)
[2025-01-18 07:27] LABS: BUN/Creatinine Ratio 14.8 (10.0-20.0); Blood Urea Nitrogen 12 mg/dL (9-23)
[2025-01-18 07:28] LABS: Magnesium 1.9 mg/dL (1.6-2.6)
[2025-01-18 07:29] LABS: Potassium 3.5 mmol/L (3.5-5.1)
--- NOTE | 2025-01-18 08:05 | DVHPN2 ---
Progress Note Date Seen: Jan 18, 2025 Medical Necessity Reason Pt with a Central, PICC or Fol: No Subjective Patient reports: No new complaints Objective vital signs Vital Sign Date Time Temp Pulse Resp B/P (MAP) Pulse Ox O2 Delivery O2 Flow Rate FiO2 01/18/25 06:59 92 16 144/66 01/18/25 06:43 99 01/18/25 06:33 Nasal Cannula 2.0 01/18/25 06:33 28 01/18/25 05:00 98.0 98.0 Total Intake and Output 01/17/25 01/17/25 01/18/25 15:00 23:00 07:00 Intake Total 2500 ml 490 ml Balance 2500 ml 490 ml medications Current Medications Medications Dose Ordered Sig/Ron Route Start Time Stop Time Status Last Admin Dose Admin Diphenhydramine HCl 25 mg QPM PO 01/16/25 18:00 01/16/25 17:03 25 MG Nifedipine 30 mg DAILY PO 01/16/25 10:00 01/17/25 09:50 30 MG Sodium Chloride 10 ml Q8HR IV 01/16/25 14:00 01/18/25 05:31 10 ML Oxycodone/ Acetaminophen 1 tab Q4HP PRN PO 01/16/25 07:30 01/18/25 02:21 1 TAB Ondansetron HCl 4 mg Q6HP PRN IV 01/16/25 07:30 Cancel Docusate Sodium 100 mg Q12HR PO 01/16/25 10:00 01/16/25 10:15 100 MG Nitroglycerin 0.4 mg Q5MINP PRN SL 01/16/25 07:30 Morphine Sulfate 2 mg Q30M PRN IV 01/16/25 07:30 Diphenhydramine HCl 25 mg Q4HP PRN IV 01/16/25 09:30 Aspirin 81 mg BID PO 01/17/25 10:00 Hold Cyclobenzaprine HCl 5 mg TID PO 01/16/25 14:00 01/18/25 05:28 5 MG Hydromorphone HCl 1 mg Q3HP PRN IV 01/16/25 13:15 01/18/25 06:59 1 MG Hydralazine HCl 10 mg Q6HP PRN IV 01/16/25 13:15 01/18/25 05:27 10 MG Nicotine 1 patch DAILY TD 01/17/25 10:00 01/17/25 10:03 1 PATCH Albuterol 2.5 mg Q6HPRN PRN [facility] 01/16/25 13:15 Furosemide 40 mg DAILY PO 01/18/25 10:00 Albuterol 2.5 mg Q6HWA [facility] 01/17/25 12:00 01/18/25 06:33 2.5 MG Ipratropium [place] 0.5 mg Q6HWA [facility] 01/17/25 12:00 01/18/25 06:33 0.5 MG Cefepime HCl 50 ml @ 12.5 mls/hr DAILY@2200 IV 01/17/25 22:00 01/17/25 22:34 12.5 MLS/HR Examination: GENERAL:Normal, MSK:Abnormal laboratory and microbiology Laboratory Tests 01/18/25 05:52 Test 01/18/25 05:52 Range/Units Serum Glucose 103 74-106 mg/dL Problem List/Assessment/Plan Problem List/Assessment/Plan 64 year old female who is s/p Right TKA POD 2 1. Pain control 2. DVT ppx 3. Physical therapy 4. CPM as ordered 5. WBAT RLE 6. follow up in 2 weeks with [facility] on 02/01/2025 at 10:00 7. prescriptions for aspirin and colace and percocet sent on 01/17/2025 to [facility] in [place] 8. Patient cleared for discharge from orthopedic standpoint with the following discharge recommendations: Total Knee Arthroplasty Discharge Instructions Wound Care 1. You will likely have a gel-type dressing over your wound, you may keep this on for 7-14 days after leaving the hospital until your first post-op visit, unless it becomes soiled or your skin becomes irritated. If a wound vac dressing is placed on your knee this is to be left in place for one week and will be changed as needed. After your remove the dressing or wound vac, the home health nurse may place clean dry dressing over your wound. Keep wound covered, clean and dry for two weeks. 2. Dano will be removed during your initial post-op visit. If you have concerns about our wound, please call the office immediately. If nervous about staple removal can take pain pill one hour prior to appointment. 3. If there is drainage from your wound, change the dressing daily until it stops. If drainage lasts more than 10 days, call our office. 4. Low grade (up to 100 degrees) fever is common for the first week after surgery. You should take your temperature daily. If you have fevers of 101 or more, please call the office. Medication Management 1. You will be discharged with pain medication, a blood thinner (unless you were previously on a blood thinner prior to surgery) and stool softener. Please follow the instructions regarding these medications as provided by your nurse at the hospital upon discharge. 2. Blood clots in the leg are a known complication of surgery. It is very important that you take the medication to protect against clots. Depending on what you are discharged on typically it is Lovenox 40mg daily for 2 weeks or Aspirin 81mg twice daily for 4 weeks. After you finish this, you should then take baby Aspirin (81mg) once daily for 2 weeks. 3. You should restart all of your prescription medications once discharged from the hospital/surgery center unless specifically instructed otherwise. 4. Herbal supplements may be restarted 2 weeks after surgery. 5. If you have been given Coumadin as a blood thinner, please follow up with your investor relations analyst during the first two weeks after surgery to review medications and overall medical well-being. 6. Please note that narcotic pain medication may cause constipation. Please remember to take stool softeners (Colace) when using narcotics to help reduce the change of constipation. You should not use alcohol together with narcotic medication. Activity 1. CPM as ordered, goal is for 6 hours every day for the first 21 days of your recovery. Can break it up in to increments of 2-3 hours at a time. Most hospitals will start at 45 degrees of flexion, and increase by 5 degrees daily until the machine has been maxed out. The goal is to be at 90 degrees by first postop visit in 2 weeks. 2. No pool, jacuzzi, beach, saldana or bath for 6 weeks. Once all scabbing has fallen off patient can begin soaking and submerging knee under water for 15- minute periods at a time. 3. Physical therapy is critical in the first 2 weeks. If having issues with scheduling please inform office. 4. No running or jumping for 6 weeks. 5. Can walk and bear as much weight on the surgical leg as tolerated. No restrictions in regards to walking or standing. Misc Instructions 1. Driving is not permitted within the first 2 weeks. 2. Your first postoperative visit will take place 2 weeks after discharge. Please call the office once you are home from the hospital to arrange this appointment. 3. Antibiotic preventative treatment is required before dental or other invasive procedures. Please ask your surgeon about this at your first postoperative visit. If you experience chest pain, shortness of breath or severe painful calf swelling, go to the nearest emergency room to be evaluated. Please call our office once your situation is stabilized. Plan discussed with: Patient Date of Service: Jan 18, 2025 Billing Provider: LIS REED MD Common Visit Codes: NOT BILLABLE CORBY TATUM NP Jan 18, 2025 08:05
--- NOTE | 2025-01-18 10:05 | DVHDS2 ---
Discharge Summary Date of Admission Jan 16, 2025 at 07:18 Date of Discharge: Jan 18, 2025 Labs/Diagnostic Data: Laboratory Results Test 01/18/25 05:52 01/17/25 11:15 01/17/25 05:04 White Blood Count 7.9 10^3/uL (4.4-10.8) Red Blood Count 4.47 10^6/uL (4.0-5.20) Hemoglobin 14.2 g/dL (12.2-16.2) Hematocrit 40.8 % (36.0-46.0) Mean Corpuscular Volume 91.3 fL (80.0-100.0) Mean Corpuscular Hemoglobin 31.7 pg (28.0-32.0) Mean Corpuscular Hemoglobin Concent 34.7 g/dL (32.0-36.0) Red Cell Distribution Width 14.2 % (11.8-14.3) Platelet Count 191 10^3/uL (140-450) Mean Platelet Volume 7.4 fL (6.9-10.8) Neutrophils (%) (Auto) 62.9 % (37.0-80.0) Lymphocytes (%) (Auto) 26.0 % (10.0-50.0) Monocytes (%) (Auto) 10.6 % (0.0-12.0) Eosinophils (%) (Auto) 0.2 % (0.0-7.0) Basophils (%) (Auto) 0.3 % (0.0-2.0) Neutrophils # (Auto) 5.0 10 ^3/uL (1.6-8.6) Lymphocytes # (Auto) 2.1 10 ^3/uL (0.4-5.4) Monocytes # (Auto) 0.8 10 ^3/uL (0-1.3) Eosinophils # (Auto) 0 10 ^3/uL (0-0.8) Basophils # (Auto) 0 10 ^3/uL (0-0.2) Nucleated Red Blood Cells 0.0 % Sodium Level 142 mmol/L (136-145) Potassium Level 3.5 mmol/L (3.5-5.1) Chloride Level 106 mmol/L (98-107) Carbon Dioxide Level 28 mmol/L (20-31) Anion Gap 8 (5-15) Blood Urea Nitrogen 12 mg/dL (9-23) Creatinine 0.81 mg/dL (0.550-1.02) Glomerular Filtration Rate Calc 81 mL/min (>90) BUN/Creatinine Ratio 14.8 (10.0-20.0) Serum Glucose 103 mg/dL (74-106) Calcium Level 8.9 mg/dL (8.7-10.4) Magnesium Level 1.9 mg/dL (1.6-2.6) Urine Color Colorless (Yellow) Urine Clarity Clear (Clear) Urine pH 6.0 (5.0-9.0) Urine Specific [place] 1.005 (1.001-1.035) Urine Protein Negative (Negative) Urine Ketones Negative (Negative) Urine Blood Negative /uL (Negative) Urine Nitrite Negative (Negative) Urine Bilirubin Negative (Negative) Urine Urobilinogen Normal mg/dL (Negative) Urine Leukocyte Esterase Negative /uL (Negative) Urine RBC <1 /hpf (0 - 4) Urine Microscopic WBC < 1 /HPF (0-5) Urine Squamous Epithelial Cells Few /hpf (<5) Urine Bacteria Few /hpf (None Seen) Urine Glucose Normal mg/dL (Normal) Total Bilirubin 0.6 mg/dL (0.2-1.0) Aspartate Amino Transferase (AST) 19 U/L (13-40) Alanine Aminotransferase (ALT) 16 U/L (7-40) Alkaline Phosphatase 58 U/L (46-116) Total Protein 6.5 g/dL (5.7-8.2) Albumin 4.0 g/dL (3.2-4.8) Other Laboratory Tests 01/18/25 05:52 Brief Hx & Hospital Course: SEE DICTATED NOTE Condition at Discharge: Good Final Diagnosis/Problems List Right knee osteoarthritis Discharge Disposition: Home Discharge Instruct/Medications Diet: Cardiac 2g Na,low cholest Activity: No Restrictions, As Tolerated Follow Up/Referral: FU WITH PCP/ORTHO Medications: RESUME HOME MEDS REST MEDS PER ORTHO PULSE OX ON ROOM AIR Scheduled Diphenhydramine Hcl (Benadryl Allergy), 25 MG PO QPM, (Reported) Nifedipine (Nifedipine Er), 1 TAB PO DAILY, (Reported) Miscellaneous Medications Acetaminophen (Tylenol), 325 MG PO, (Reported) Cholecalciferol (D3), 50 MCG PO, (Reported) Cyanocobalamin (B12), 1,000 MCG PO, (Reported) Furosemide (Lasix), 60 MG PO, (Reported) Metoprolol Tartrate (Metoprolol Tartrate), 100 MG PO, (Reported) Withania Somnifera (Ashwagandha), 125 MG PO, (Reported) Discharge Statement: "Patient was advised to return to the ER or call 911 if any headaches, dizziness, shortness of breath, chest pain, abdominal pain, bleeding, fevers, or worsening of medical condition. Patient was counseled about treatment plan, medications, possible side effects, patientverbalized understanding. All questions were answered to the best of my ability. This discharge took greater then 30 minutes in planning, reviewing documentation, counseling the patient, and discussing with other team members." ASSESSMENT ASSESSMENT Assessment Right knee osteoarthritis Date of Service: Jan 18, 2025 Billing Provider: TERESO GRAF MD Common Visit Codes: 07468-JUX/OBS DISCH DAY >30min TERESO GRAF MD Jan 18, 2025 10:05
--- NOTE | 2025-01-18 10:13 | DVHDS ---
DATE OF DISCHARGE: 01/18/2025 HISTORY OF PRESENT ILLNESS: The patient is a 64-year-old lady who was admitted after she underwent surgery on the right knee for DJD of the knee. She has a history of COPD, hypertension, and questionable congestive heart failure. HOSPITAL COURSE: The patient had a chest x-ray that showed no acute disease. The patient was placed on bronchodilators. Hemoglobin remains stable. The patient will now be discharged home with home physical therapy and a CPM machine. The patient will also have a pulse ox/ABG on room air prior to discharge. She will follow up with her primary and Orthopedics. FINAL DIAGNOSES: * Hypertension. * Obesity. * COPD with questionable acute respiratory failure. * Tobacco abuse. * Questionable chronic systolic/diastolic heart failure. * Status post right knee surgery for DJD of the knee. Time spent in discharge planning and review of plan with the patient and nursing was 38 minutes. MD ANNA Person/MARK TID: [id number] RECEIPT: [id number]
[2025-01-18] MEDS: FUROSEMIDE 20 MG TAB PO SCH (10:35)
[2025-01-18 10:39] LABS: Base Excess 0.2 mmol/L (-2.0-3.0)
== END 2025-01-18 18:36 | disposition home health service (06) | DRG 470 ==
LOC: SUR 06:06 → OVERFLOW 07:18 → TELE-CENTR 13:53
PROVIDERS: ADMIT Internal Medicine; ATTEND Internal Medicine
PROC: 8E0YXBZ Computer Assisted Procedure of Lower Extremity (ICD-10-PCS; 2025-01-16)
PROC: 0SRC0JZ Replacement of Right Knee Joint with Synthetic Substitute, Open Approach (ICD-10-PCS; principal; 2025-01-16 07:22)
DX: M17.11 Unilateral primary osteoarthritis, right knee (principal); I50.42 Chronic combined systolic (congestive) and diastolic (congestive) heart failure; I10 Essential (primary) hypertension; E66.9 Obesity, unspecified; F17.210 Nicotine dependence, cigarettes, uncomplicated; J44.9 Chronic obstructive pulmonary disease, unspecified; Z88.0 Allergy status to penicillin; Z88.1 Allergy status to other antibiotic agents; Z68.35 Body mass index [BMI] 35.0-35.9, adult
CPT/HCPCS: 36415; 36600; 71045; 73562; 80048; 80053; 81001; 82805; 83735; 85014; 85018; 85025; 86850; 86900; 86901; 94640; 97110; 97116; 97163; G0378; J0131; J1885; J2003; J2250; J2405; J2704; J3490